=== PATIENT | male | born 1990 | race Hispanic/Latino ===

== ENCOUNTER 2018-02-17 21:59 | Emergency (ER) | payer BC ==
[2018-02-18] MEDS ORDERED: LIDOCAINE 1% MPF 2 ML AMPULE ONE (00:30)
[2018-02-18] MEDS ORDERED: LIDOCAINE 1% 20 ML MDV ONE (00:31)
--- NOTE | 2018-02-18 00:48 | ER ---
Nurse's Notes [facility] Name: James Reynaga Age: 27 yrs Sex: Male : 1990 Arrival Date: 02/17/2018 Time: 22:11 Bed 16 Private MD: Diagnosis: Cutaneous abscess of left axilla Presentation: 02/17 22:53 Presenting complaint: Patient states: that he has a red, swollen, tender area to left fc aux. area. Started 3 days ago. Transition of care: patient was not received from another setting of care. Onset of symptoms was February 14, 2018. Risk Assessment: Do you want to hurt yourself or someone else? Patient reports no desire to harm self or others. Initial Sepsis Screen: Does the patient meet any 2 criteria? No. Patient's initial sepsis screen is negative. Does the patient have a suspected source of infection? No. Patient's initial sepsis screen is negative. Care prior to arrival: None. 22:53 Method Of Arrival: Ambulatory 22:53 Acuity: BELA 4 Triage Assessment: 22:58 General: Appears comfortable, obese, Behavior is calm, cooperative, appropriate for age. Pain: Complains of pain in left axilla Pain currently is 6 out of 10 on a pain scale. Quality of pain is described as aching, tender, throbbing, Pain began 2-3 days ago. Is continuous, Aggravated by increased activity, repositioning. EENT: No deficits noted. Neuro: Level of Consciousness is awake, alert, obeys commands, Oriented to person, place, time, situation. Cardiovascular: No deficits noted. Respiratory: No deficits noted. GI: No deficits noted. : No deficits noted. Derm: Skin is pink, warm \T\ dry. Abscess located on left axilla is quarter sized, is hot to touch, is red, is raised. Musculoskeletal: Circulation, motion, and sensation intact. Capillary refill < 3 seconds, Range of motion: intact in all extremities. Historical: - Allergies: 22:57 PENICILLINS; fc - Home Meds: 22:57 None [Active]; fc - PMHx: 22:57 Hypertension; fc - PSHx: 22:57 None; fc - Immunization history:: Last tetanus immunization: up to date. - Social history:: Smoking status: Patient uses tobacco products, smokes one-half pack cigarettes per day. - Ebola Screening: : Patient negative for fever greater than or equal to 101.5 degrees Fahrenheit, and additional compatible Ebola Virus Disease symptoms Patient denies exposure to infectious person Patient denies travel to an Ebola-affected area in the 21 days before illness onset. Screenin/30 00:04 Abuse screen: Denies threats or abuse. Nutritional screening: No deficits noted. bb Tuberculosis screening: No symptoms or risk factors identified. Fall Risk None identified. Assessment: 00:04 General: Appears in no apparent distress. obese, Behavior is calm, cooperative. Pain: bb Complains of pain in left axilla. Neuro: Level of Consciousness is awake, alert, obeys commands, Oriented to person, place, time, situation. Cardiovascular: No deficits noted. Respiratory: Respiratory effort is even, unlabored. GI: No signs and/or symptoms were reported involving the gastrointestinal system. Derm: Skin is pink, warm \T\ dry. Abscess located on left axilla is red, is raised. Musculoskeletal: Circulation, motion, and sensation intact. 01:23 Reassessment: Patient and/or family updated on plan of care and expected duration. Pain bb level reassessed. Patient is alert, oriented x 3, equal unlabored respirations, skin warm/dry/pink. dressing to left axilla intact. Vital Signs: 02/17 22:53 BP 154 / 103; Pulse 76; Resp 20; Temp 98.9(O); Pulse Ox 99% on R/A; Weight 108.86 kg fc (R); Height 5 ft. 10 in. (177.80 cm) (R); Pain 6/10; 02/18 01:22 BP 132 / 92; Pulse 71; Resp 16 S; Temp 98.6(O); Pulse Ox 98% on R/A; bb 02/17 22:53 Body Mass Index 34.44 (108.86 kg, 177.80 cm) ED Course: 02/17 22:11 Patient arrived in ED. as 22:54 Triage completed. fc 22:57 Arm band placed on Patient placed in waiting room, Patient notified of wait time. fc 23:58 [facility]ilar [facility]. jr8 23:58 Bob Glover MD is Attending Physician. jr8 02/18 00:04 Tay, Lisa, RN is Primary Nurse. bb 00:04 Patient has correct armband on for positive identification. Bed in low position. Call bb light in reach. 01:20 Wound culture swab sent to lab. bb 01:21 Assist provider with I \T\ D: of an abscess on left axilla Set up I\T\D tray. Performed by derian TRACEY Culture sent to lab. Wound packed. iodoform gauze, Dressing with 2x2 and tegaderm Patient tolerated well. 01:22 Patient did not have IV access during this emergency room visit. bb 01:34 Wound Culture Sent. fc Administered Medications: 00:55 Drug: Lidocaine (1 %) 5 mg {Note: by Addi TRACEY to affected area.} Route: Infiltration; 01:34 Follow up: Response: No adverse reaction Outcome: 00:48 Discharge ordered by jr8 01:23 Discharged to home ambulatory, with family. bb 01:23 Condition: stable 01:42 Discharge instructions given to patient, Instructed on discharge instructions, follow bb up and referral plans. medication usage, wound care, Demonstrated understanding of instructions, follow-up care, medications, wound care, Prescriptions given X 1. 01:43 Patient left the ED. bb Addendum: 02/21/2018 07:44 Addendum: Culture Results: Positive wound culture. No further action required. Bacteria s s sensitive to prescribed antibiotic. Signatures: Deborah Atkinson RN RN fc Martinez, Amelia as Ballard, Brenda, RN RN bb Smirch, Shelby, RN RN ss Roszak, Josh, PA PA jr8
--- NOTE | 2018-02-18 00:49 | EDPHYS ---
Physician Documentation [facility] Name: James Reynaga Age: 27 yrs Sex: Male : 1990 Arrival Date: 02/17/2018 Time: 22:11 Bed 16 Private MD: ED Physician Bob Glover HPI: 02/18 00:45 This 27 yrs old Male presents to ER via Ambulatory with complaints of Abscess. jr8 00:45 The patient presents with an abscess of the left axilla. Description: The affected area jr8 is small, well demarcated, erythematous, swollen, tense. Onset: The symptoms/episode began/occurred gradually, 2 day(s) ago. Possible cause(s): unknown. Associated signs and symptoms: The patient has no apparent associated signs or symptoms. Modifying factors: the symptoms are alleviated by nothing, the symptoms are aggravated by pressure, squeezing the lesion and expressing the contents, touching. Severity of symptoms: At their worst the symptoms were mild, in the emergency department the symptoms are unchanged. The patient has not experienced similar symptoms in the past. The patient has not recently seen a physician. Historical: - Allergies: 02/17 22:57 PENICILLINS; fc - Home Meds: 22:57 None [Active]; fc - PMHx: 22:57 Hypertension; fc - PSHx: 22:57 None; fc - Immunization history:: Last tetanus immunization: up to date. - Social history:: Smoking status: Patient uses tobacco products, smokes one-half pack cigarettes per day. - Ebola Screening: : Patient negative for fever greater than or equal to 101.5 degrees Fahrenheit, and additional compatible Ebola Virus Disease symptoms Patient denies exposure to infectious person Patient denies travel to an Ebola-affected area in the 21 days before illness onset. ROS: 02/18 00:45 Eyes: Negative for injury, pain, redness, and discharge, ENT: Negative for injury, jr8 pain, and discharge, Neck: Negative for injury, pain, and swelling, Cardiovascular: Negative for chest pain, palpitations, and edema, Respiratory: Negative for shortness of breath, cough, wheezing, and pleuritic chest pain, Abdomen/GI: Negative for abdominal pain, nausea, vomiting, diarrhea, and constipation, Back: Negative for injury and pain, MS/Extremity: Negative for injury and deformity, Neuro: Negative for headache, weakness, numbness, tingling, and seizure. Skin: Positive for abscess, of the left axilla. Exam: 00:45 Eyes: Pupils equal round and reactive to light, extra-ocular motions intact. Lids and jr8 lashes normal. Conjunctiva and sclera are non-icteric and not injected. Cornea within normal limits. Periorbital areas with no swelling, redness, or edema. ENT: Nares patent. No nasal discharge, no septal abnormalities noted. Tympanic membranes are normal and external auditory canals are clear. Oropharynx with no redness, swelling, or masses, exudates, or evidence of obstruction, uvula midline. Mucous membranes moist. Neck: Trachea midline, no thyromegaly or masses palpated, and no cervical lymphadenopathy. Supple, full range of motion without nuchal rigidity, or vertebral point tenderness. No Meningismus. Cardiovascular: Regular rate and rhythm with a normal S1 and S2. No gallops, murmurs, or rubs. Normal PMI, no JVD. No pulse deficits. Respiratory: Lungs have equal breath sounds bilaterally, clear to auscultation and percussion. No rales, rhonchi or wheezes noted. No increased work of breathing, no retractions or nasal flaring. Abdomen/GI: Soft, non-tender, with normal bowel sounds. No distension or tympany. No guarding or rebound. No evidence of tenderness throughout. Back: No spinal tenderness. No costovertebral tenderness. Full range of motion. Skin: Warm, dry with normal turgor. Normal color with no rashes, no lesions, and no evidence of cellulitis. MS/ Extremity: Pulses equal, no cyanosis. Neurovascular intact. Full, normal range of motion. Neuro: Awake and alert, GCS 15, oriented to person, place, time, and situation. Cranial nerves II-XII grossly intact. Motor strength 5/5 in all extremities. Sensory grossly intact. Cerebellar exam normal. Normal gait. 00:45 Chest/axilla: Axilla: abscess, that is small, of the left axilla, with pointing, with tenderness. Vital Signs: 02/17 22:53 BP 154 / 103; Pulse 76; Resp 20; Temp 98.9(O); Pulse Ox 99% on R/A; Weight 108.86 kg fc (R); Height 5 ft. 10 in. (177.80 cm) (R); Pain 03/01; 02/18 01:22 BP 132 / 92; Pulse 71; Resp 16 S; Temp 98.6(O); Pulse Ox 98% on R/A; bb 02/17 22:53 Body Mass Index 34.44 (108.86 kg, 177.80 cm) fc Procedures: 00:45 I \T\ D: Incision and drainage was performed for an abscess of the left axilla. Prepped jr8 with Betadine, Anesthetized with 3 ml's 1% Lidocaine. Incised with #11 blade. Drained small amount purulent fluid. bloody fluid. Loculations removed. Cultures obtained. Abscess cavity explored. Packed with iodoform gauze, Dressing: sterile 4x4 gauze, the patient tolerated the procedure well. MDM: 02/17 23:58 Patient medically screened. jr8 02/18 00:45 Data reviewed: vital signs, nurses notes, and as a result, I will discharge patient. 8 Data interpreted: Pulse oximetry: on room air is 99 %. Interpretation: normal. Counseling: I had a detailed discussion with the patient and/or guardian regarding: the historical points, exam findings, and any diagnostic results supporting the discharge/admit diagnosis, lab results, the need for outpatient follow up, a family practitioner, to return to the emergency department if symptoms worsen or persist or if there are any questions or concerns that arise at home. 02/18 00:45 Order name: Wound Culture 8 02/18 00:46 Order name: Wound Culture EDNC 02/18 01:31 Order name: I\T\D Setup; Complete Time: 01:33 jr8 Administered Medications: 00:55 Drug: Lidocaine (1 %) 5 mg {Note: by Addi TRACEY to affected area.} Route: Infiltration;fc 01:34 Follow up: Response: No adverse reaction fc Disposition: 06:48 Co-signature as Attending Physician, Bob Glover MD. rn Disposition: 02/18/18 00:48 Discharged to Home. Impression: Cutaneous abscess of left axilla. - Condition is Stable. - Discharge Instructions: Abscess, Incision and Drainage. - Prescriptions for Bactrim DS 800- 160 mg Oral Tablet - take 1 tablet by ORAL route every 12 hours for 10 days; 20 tablet. - Work release form, Medication Reconciliation Form, Thank You Letter, Antibiotic Education, Prescription Opioid Use form. - Follow up: Private Physician; When: 48 Hours; Reason: Wound Recheck, Recheck today's complaints, Continuance of care, Re-evaluation by your physician. - Problem is new. - Symptoms have improved. Signatures: Dispatcher [employer] EDMS Deborah Atkinson RN RN Lisa Zheng RN RN bb Nieto, Roman, MD MD rn Roszak, Josh, PA PA jr8 Corrections: (The following items were deleted from the chart) 01:43 00:48 02/18/2018 00:48 Discharged to Home. Impression: Cutaneous abscess of left bb axilla. Condition is Stable. Forms are Medication Reconciliation Form, Thank You Letter, Antibiotic Education, Prescription Opioid Use. Follow up: Private Physician; When: 48 Hours; Reason: Wound Recheck, Recheck today's complaints, Continuance of care, Re-evaluation by your physician. Problem is new. Symptoms have improved. jr8
== END 2018-02-18 01:43 | disposition home or self-care (01) ==
LOC: ER 21:59
PROC: 0J9F0ZZ Drainage of Left Upper Arm Subcutaneous Tissue and Fascia, Open Approach (ICD-10-PCS; principal; 2018-02-18)
DX: L02.412 Cutaneous abscess of left axilla (principal); F17.210 Nicotine dependence, cigarettes, uncomplicated; I10 Essential (primary) hypertension; Z88.0 Allergy status to penicillin
CPT/HCPCS: 87070; 87077; 87186; 87205; 99284; J2001

== ENCOUNTER 2018-02-20 15:33 | Emergency (ER) | payer BC ==
--- NOTE | 2018-02-20 16:57 | ER ---
Nurse's Notes [facility] Name: James Reynaga Age: 27 yrs Sex: Male : 1990 Arrival Date: 02/20/2018 Time: 15:39 Bed 25 Private MD: None, None Diagnosis: Cutaneous abscess of left axilla Presentation: 02/20 16:10 Presenting complaint: Patient states: Here for wound packing removal. Transition of care: patient was not received from another setting of care. Onset of symptoms was February 18, 2018. Risk Assessment: Do you want to hurt yourself or someone else? Patient reports no desire to harm self or others. Care prior to arrival: None. 16:10 Method Of Arrival: Ambulatory aj 16:10 Acuity: BELA 5 aj 16:58 Initial Sepsis Screen: Does the patient meet any 2 criteria? No. Patient's initial aj1 sepsis screen is negative. Does the patient have a suspected source of infection? Yes: Other: abscess. Triage Assessment: 16:11 General: Appears in no apparent distress. comfortable, Behavior is calm, cooperative, aj appropriate for age. Pain: Denies pain. Neuro: Level of Consciousness is awake, alert, obeys commands, Oriented to person, place, time, situation, Appropriate for age. Respiratory: Airway is patent Respiratory effort is even, unlabored, Respiratory pattern is regular, symmetrical. Derm: Skin is intact, is healthy with good turgor, Skin is pink, warm \T\ dry. normal. Historical: - Allergies: 16:11 PENICILLINS; aj - Home Meds: 16:11 Bactrim DS Oral [Active]; aj - PMHx: 16:11 Hypertension; aj - PSHx: 16:11 None; aj - Immunization history:: Adult Immunizations up to date. - Social history:: Smoking status: Patient uses tobacco products, denies chronic smoking, but will smoke occasionally. - Ebola Screening: : No symptoms or risks identified at this time. Screenin:56 Abuse screen: Denies threats or abuse. Denies injuries from another. Nutritional aj1 screening: No deficits noted. Tuberculosis screening: No symptoms or risk factors identified. 16:58 Fall Risk None identified. aj1 Assessment: 16:56 General: Appears in no apparent distress. comfortable, Behavior is calm, cooperative, aj1 appropriate for age. Pain: Denies pain. Neuro: Level of Consciousness is awake, alert, obeys commands, Oriented to person, place, time, situation. Cardiovascular: Patient's skin is warm and dry. Respiratory: Airway is patent Respiratory effort is even, unlabored, Respiratory pattern is regular, symmetrical. GI: No signs and/or symptoms were reported involving the gastrointestinal system. : No signs and/or symptoms were reported regarding the genitourinary system. EENT: No signs and/or symptoms were reported regarding the EENT system. Derm: Abscess located on left lateral anterior chest was lanced and packed by our facility, patient has returned to have packing removed. Musculoskeletal: No signs and/or symptoms reported regarding the musculoskeletal system. Circulation, motion, and sensation intact. 17:28 Reassessment: Patient appears in no apparent distress at this time. No changes from aj1 previously documented assessment. Patient and/or family updated on plan of care and expected duration. Pain level reassessed. Patient is alert, oriented x 3, equal unlabored respirations, skin warm/dry/pink. Vital Signs: 16:11 BP 151 / 96; Pulse 63; Resp 19; Temp 97.6; Pulse Ox 100% on R/A; Weight 115.67 kg; aj Height 5 ft. 10 in. (177.80 cm); Pain 0/10; 16:11 Body Mass Index 36.59 (115.67 kg, 177.80 cm) aj ED Course: 15:39 Patient arrived in ED. sb2 15:39 None, None is Private Physician. sb2 16:11 Triage completed. aj 16:11 Arm band placed on right wrist. Patient placed in waiting room, Patient notified of wait time. 16:52 Jennifer Carter, [place] is Primary Nurse. aj1 16:53 Manuel Shaffer MD is Attending Physician. gs 16:56 Patient has correct armband on for positive identification. Placed in gown. Bed in low aj1 position. Call light in reach. 16:56 No provider procedures requiring assistance completed. aj1 16:56 Patient did not have IV access during this emergency room visit. aj1 Administered Medications: No medications were administered Outcome: 16:56 Discharge ordered by MD. gs 17:29 Discharged to home ambulatory. aj1 17:29 Condition: good 17:29 Discharge instructions given to patient, Instructed on discharge instructions, follow up and referral plans. Demonstrated understanding of instructions, follow-up care. 17:29 Patient left the ED. aj1 Signatures: Jennifer Carter RN RN aj1 Pinky Alejo RN RN aj Manuel Shaffer MD MD gs Billeau, Sheri sb2
--- NOTE | 2018-02-20 16:57 | EDPHYS ---
Physician Documentation [facility] Name: James Reynaga Age: 27 yrs Sex: Male : 1990 Arrival Date: 02/20/2018 Time: 15:39 Bed 25 Private MD: None, None ED Physician Manuel Shaffer HPI: 02/20 16:58 This 27 yrs old Male presents to ER via Ambulatory with complaints of Abscess gs Recheck. 16:58 Patient presents to ED for recheck of: abscess. The affected area is on the left gs axilla. Previous treatment: the care was rendered at [facility]. Progress: The patient reports excellent improvement in the affected area. There has been resolution, improvement, or non-development of any drainage, fever, pain, redness or swelling. Historical: - Allergies: 16:11 PENICILLINS; aj - Home Meds: 16:11 Bactrim DS Oral [Active]; aj - PMHx: 16:11 Hypertension; aj - PSHx: 16:11 None; aj - Immunization history:: Adult Immunizations up to date. - Social history:: Smoking status: Patient uses tobacco products, denies chronic smoking, but will smoke occasionally. - Ebola Screening: : No symptoms or risks identified at this time. ROS: 16:58 Constitutional: Negative for fever. gs 16:58 Skin: Negative for cellulitis. 16:58 All other systems are negative. Exam: 16:58 Neck: Trachea midline, no thyromegaly or masses palpated, and no cervical gs lymphadenopathy. Supple, full range of motion without nuchal rigidity, or vertebral point tenderness. No Meningismus. Cardiovascular: Regular rate and rhythm with a normal S1 and S2. No gallops, murmurs, or rubs. Normal PMI, no JVD. No pulse deficits. Respiratory: Lungs have equal breath sounds bilaterally, clear to auscultation and percussion. No rales, rhonchi or wheezes noted. No increased work of breathing, no retractions or nasal flaring. Back: No spinal tenderness. No costovertebral tenderness. Full range of motion. Skin: Warm, dry with normal turgor. Normal color with no rashes, no lesions, and no evidence of cellulitis. Neuro: Awake and alert, GCS 15, oriented to person, place, time, and situation. Cranial nerves II-XII grossly intact. Motor strength 5/5 in all extremities. Sensory grossly intact. Cerebellar exam normal. Normal gait. 16:58 Chest/axilla: Inspection: abscess, that is small, no drainage packing in place i removed packing wound good, cellulitis, is not appreciated. Vital Signs: 16:11 BP 151 / 96; Pulse 63; Resp 19; Temp 97.6; Pulse Ox 100% on R/A; Weight 115.67 kg; aj Height 5 ft. 10 in. (177.80 cm); Pain 0/10; 16:11 Body Mass Index 36.59 (115.67 kg, 177.80 cm) aj MDM: 16:56 Patient medically screened. 16:58 Data reviewed: vital signs, nurses notes. Administered Medications: No medications were administered Disposition: 02/20/18 16:56 Discharged to Home. Impression: Cutaneous abscess of left axilla. - Condition is Stable. - Discharge Instructions: Abscess. - Work release form, Medication Reconciliation Form, Thank You Letter, Antibiotic Education, Prescription Opioid Use form. - Follow up: Private Physician; When: 2 - 3 days; Reason: Re-evaluation by your physician. Signatures: Jennifer Carter RN RN aj1 Pinky Alejo RN RN aj Manuel Shaffer MD MD Corrections: (The following items were deleted from the chart) 17:29 16:56 02/20/2018 16:56 Discharged to Home. Impression: Cutaneous abscess of left aj1 axilla. Condition is Stable. Forms are Medication Reconciliation Form, Thank You Letter, Antibiotic Education, Prescription Opioid Use. Follow up: Private Physician; When: 2 - 3 days; Reason: Re-evaluation by your physician.
== END 2018-02-20 17:29 | disposition home or self-care (01) ==
LOC: ER 15:33
DX: L02.412 Cutaneous abscess of left axilla (principal); I10 Essential (primary) hypertension; Z88.0 Allergy status to penicillin; Z72.0 Tobacco use
CPT/HCPCS: 99281